=== PATIENT | male | born 1985 | race African-American/Black ===

== ENCOUNTER 2018-06-09 17:31 | Emergency (ER) | payer SELFPAY ==
[2018-06-09] MEDS ORDERED: Ketorolac Tromethamine 60 MG/2 ML VIAL ONE (19:01)
== END 2018-06-09 19:29 | disposition home or self-care (01) ==
LOC: ERS 17:31
DX: M62.830 Muscle spasm of back (principal); M62.838 Other muscle spasm; V89.2XXA Person injured in unspecified motor-vehicle accident, traffic, initial encounter; F17.210 Nicotine dependence, cigarettes, uncomplicated
CPT/HCPCS: 96372; J1885

== ENCOUNTER 2022-10-06 11:01 | Emergency (ER) | payer OTHER, SELFPAY ==
[2022-10-06 11:54] LABS: Bilirubin Negative (Negative); Blood, Urine Negative (Negative); Clarity Clear (Clear); Glucose, Urine (Dipstick) Normal (Negative); Ketone, Urine Negative (Negative); Leukocyte Negative Leu/uL (Negative); Nitrite Negative (Negative); Protein, Urine (Dipstick) Negative (Neg-Trace); Specific Gravity, Urine 1.002 (1.002-1.036); Urobilinogen Normal mg/dL (Less than 2); pH, Urine 5.5 (5.0-9.0)
[2022-10-06 12:01] LABS: Amphetamine Not Detected (NotDetected); Barbiturates Screen Not Detected (NotDetected); Benzodiazepine Screen Not Detected (NotDetected); Cocaine Metabolite Screen Not Detected (NotDetected); Methadone Not Detected (NotDetected); Methamphetamine Not Detected (NotDetected); Opiate Screen Not Detected (NotDetected); Oxycodone Screen Not Detected (NotDetected); Phencyclidine (PCP) Not Detected (NotDetected); THC/Cannabinoid Screen Not Detected (NotDetected); Tricyclic Screen Not Detected (NotDetected)
[2022-10-06 12:06] LABS: #Basophils 0.1 thou/uL (0.0-0.2); #Monocytes 0.9 thou/uL (0.11-0.59); #Neutrophils 7.2 thou/uL (1.40-6.50); %Basophils 0.8 % (0.0-1.0); %Eosinophils 0.3 % (0.0-10.0); %Lymphocytes 19.6 % (21.0-51.0); %Neutrophils 70.3 % (42.0-75.0); Hemoglobin 14.2 g/dL (14.0-18.0); Mean Corpuscular HGB CONC 33.4 g/dL (32.0-36.0); Mean Corpuscular Hemoglobin 34.1 pg (27.0-31.0); Mean Platelet Volume 8.2 fL (7.4-10.4); Platelet Count 133 10x3/uL (130-400); RBC Distribution Width 11.4 % (11.5-14.5); Red Blood Cell (RBC) Count 4.17 mill/uL (4.70-6.10); White Blood Cell (WBC) Count 10.3 10x3/uL (4.8-10.8)
[2022-10-06 12:22] LABS: SARS-CoV-2 NAA Rapid Test Not Detected (NotDetected)
[2022-10-06 12:33] LABS: ALT (SGPT) 157 U/L (8-55); AST (SGOT) 162 U/L (5-34); Albumin 4.6 g/dL (3.5-5.0); Alkaline Phosphatase 98 U/L (40-110); Anion Gap 20 mmol/L (10-20); BUN (Urea Nitrogen) 6 mg/dL (8.9-20.6); Bilirubin, Total 1.2 mg/dL (0.2-1.2); Calc. Creatinine Clearance 0 mL/min (70-130); Calcium 9.2 mg/dL (7.8-10.44); Carbon Dioxide 22 mmol/L (22-29); Chloride 100 mmol/L (98-107); Estimated GFR 119; Globulin 3.3 g/dL (2.4-3.5); Glucose 115 mg/dL (70-105); Magnesium 2.1 mg/dL (1.6-2.6); Potassium 3.6 mmol/L (3.5-5.1); Protein, Total 7.9 g/dL (6.0-8.3); Sodium 138 mmol/L (136-145)
[2022-10-06 12:34] LABS: Acetaminophen Less than 10.0 mcg/mL (10.0-30.0); Alcohol 408 mg/dL (Less than 10); Salicylate Less than 8.0 mg/dL (15.0-30.0)
== END 2022-10-07 07:43 | disposition home or self-care (01) ==
LOC: ERS 11:01
DX: F10.129 Alcohol abuse with intoxication, unspecified (principal); F43.20 Adjustment disorder, unspecified; F17.200 Nicotine dependence, unspecified, uncomplicated; Z20.822 Contact with and (suspected) exposure to COVID-19
CPT/HCPCS: 36415; 80053; 80306; 80307; 81003; 83735; 84443; 85025; 99285; U0002

== ENCOUNTER 2022-10-08 00:21 | Emergency (ER) | payer SELFPAY ==
[2022-10-08] MEDS ORDERED: CEFAZOLIN 1 GM VIAL ONE (01:05)
[2022-10-08] MEDS ORDERED: Boostrix 0.5 ML (Tdap) VIAL (>/=7 yrs of age) ONE (01:05)
[2022-10-08 01:19] LABS: Hemoglobin 13.1 g/dL (14.0-18.0); Mean Corpuscular HGB CONC 33.4 g/dL (32.0-36.0); Mean Corpuscular Hemoglobin 34.1 pg (27.0-31.0); Red Blood Cell (RBC) Count 3.85 mill/uL (4.70-6.10); White Blood Cell (WBC) Count 9.2 10x3/uL (4.8-10.8)
[2022-10-08 01:26] LABS: ALT (SGPT) 167 U/L (8-55); AST (SGOT) 245 U/L (5-34); Acetaminophen Less than 10.0 mcg/mL (10.0-30.0); Albumin 4.2 g/dL (3.5-5.0); Alcohol Less than 10 mg/dL (Less than 10); Alkaline Phosphatase 114 U/L (40-110); Anion Gap 18 mmol/L (10-20); BUN (Urea Nitrogen) 6 mg/dL (8.9-20.6); Bilirubin, Total 3.3 mg/dL (0.2-1.2); Calc. Creatinine Clearance 0 mL/min (70-130); Calcium 9.1 mg/dL (7.8-10.44); Carbon Dioxide 25 mmol/L (22-29); Chloride 91 mmol/L (98-107); Estimated GFR 118; Globulin 3.1 g/dL (2.4-3.5); Glucose 147 mg/dL (70-105); Potassium 3.6 mmol/L (3.5-5.1); Protein, Total 7.3 g/dL (6.0-8.3); Salicylate Less than 8.0 mg/dL (15.0-30.0); Sodium 130 mmol/L (136-145)
[2022-10-08 01:35] LABS: #Basophils 0.1 thou/uL (0.0-0.2); #Eosinphils 0.1 thou/uL (0.0-0.7); #Lymphocytes 1.2 thou/uL (1.20-3.40); #Monocytes 0.7 thou/uL (0.11-0.59); #Neutrophils 7.2 thou/uL (1.40-6.50); %Basophils 0.6 % (0.0-1.0); %Eosinophils 0.6 % (0.0-10.0); %Lymphocytes 13.3 % (21.0-51.0); %Monocytes 7.4 % (0.0-10.0); %Neutrophils 78.1 % (42.0-75.0); Band 8 % (5-11); Hypochromia SLIGHT = 6-15 cells (100X) (0-5/hpf); Lymphocytes 17 % (21-51); MDiff Complete? YES; Macrocytosis SLIGHT = 6-15 cells (100X) (0-5/hpf); Mean Platelet Volume 8.9 fL (7.4-10.4); Monocytes 8 % (0-10); Neutrophil 64 % (42-75); Platelet Count 114 10x3/uL (130-400); Platelet Morphology Comment Appears Decreased; Reactive Lymphocytes 3 % (0-10)
[2022-10-08] MEDS ORDERED: Ketorolac Tromethamine 30 MG/ML VIAL ONE (02:31)
[2022-10-08 03:38] LABS: Amphetamine Not Detected (NotDetected); Barbiturates Screen Not Detected (NotDetected); Benzodiazepine Screen Not Detected (NotDetected); Cocaine Metabolite Screen Not Detected (NotDetected); Methadone Not Detected (NotDetected); Methamphetamine Not Detected (NotDetected); Opiate Screen Not Detected (NotDetected); Oxycodone Screen Not Detected (NotDetected); Phencyclidine (PCP) Not Detected (NotDetected); THC/Cannabinoid Screen Not Detected (NotDetected); Tricyclic Screen Not Detected (NotDetected)
[2022-10-08] MEDS ORDERED: Bacitracin 1 PK ONE (03:40)
[2022-10-08] MEDS ORDERED: Lidocaine 1% w/Epinephrine 1:100K 20 ML VIAL ONE (04:21)
[2022-10-08] MEDS ORDERED: Lidocaine 1% PF 5 ML VIAL ONE (04:25)
[2022-10-08 04:28] LABS: Lactic Acid 0.7 mmol/L (0.5-2.2)
[2022-10-08] MEDS ORDERED: Iopamidol-370 76% 500 ML 1 ML ONE (17:40)
== END 2022-10-08 05:00 | disposition home or self-care (01) ==
LOC: ERS 00:21
DX: S01.81XA Laceration without foreign body of other part of head, initial encounter (principal); S20.219A Contusion of unspecified front wall of thorax, initial encounter; S60.511A Abrasion of right hand, initial encounter; S60.512A Abrasion of left hand, initial encounter; F17.200 Nicotine dependence, unspecified, uncomplicated; Z23 Encounter for immunization; W18.39XA Other fall on same level, initial encounter
CPT/HCPCS: 12002; 36415; 70450; 70486; 71045; 71275; 76705; 80053; 80306; 80307; 83605; 84484; 85025; 85379; 90471; 90715; 93005; 96361; 96365; 96375; J0690; J1885; Q9967

== ENCOUNTER 2022-10-14 17:00 | Emergency (ER) | payer SELFPAY | END 2022-10-14 20:28 | disposition home or self-care (01) | LOC: ERS 17:00 | DX: S01.81XD Laceration without foreign body of other part of head, subsequent encounter (principal); X58.XXXD Exposure to other specified factors, subsequent encounter; F17.200 Nicotine dependence, unspecified, uncomplicated ==

== ENCOUNTER 2023-12-31 07:34 | Emergency (ER) | payer SELFPAY | END 2023-12-31 08:22 | disposition home or self-care (01) | LOC: ERS 07:34 | DX: S93.401A Sprain of unspecified ligament of right ankle, initial encounter (principal); F17.200 Nicotine dependence, unspecified, uncomplicated; W10.8XXA Fall (on) (from) other stairs and steps, initial encounter; Y93.01 Activity, walking, marching and hiking ==

== ENCOUNTER 2024-02-07 09:30 | Emergency (ER) | payer SELFPAY ==
[2024-02-07] MEDS ORDERED: Ibuprofen 200 MG TAB ONE (09:57)
== END 2024-02-07 10:21 | disposition home or self-care (01) ==
LOC: ERS 09:30
DX: S86.012A Strain of left Achilles tendon, initial encounter (principal); F17.200 Nicotine dependence, unspecified, uncomplicated; X58.XXXA Exposure to other specified factors, initial encounter

== ENCOUNTER 2024-04-24 17:29 | Emergency (ER) | payer SELFPAY | END 2024-04-24 20:45 | disposition home or self-care (01) | LOC: ERS 17:29 | DX: M25.572 Pain in left ankle and joints of left foot (principal); F17.200 Nicotine dependence, unspecified, uncomplicated | CPT/HCPCS: 99283 ==

== ENCOUNTER 2024-05-09 22:17 | Emergency (ER) | payer SELFPAY ==
[2024-05-09] MEDS ORDERED: Ketorolac Tromethamine 30 MG (1 mL) VIAL ONE (23:21)
== END 2024-05-09 23:40 | disposition home or self-care (01) ==
LOC: ERS 22:17
DX: M25.572 Pain in left ankle and joints of left foot (principal); F17.210 Nicotine dependence, cigarettes, uncomplicated; X50.1XXA Overexertion from prolonged static or awkward postures, initial encounter
CPT/HCPCS: 96372; 99283; J1885

== ENCOUNTER 2024-07-11 08:56 | Emergency (ER) | payer SELFPAY | END 2024-07-11 10:00 | disposition home or self-care (01) | LOC: ERS 08:56 | DX: S60.221A Contusion of right hand, initial encounter (principal); S20.211A Contusion of right front wall of thorax, initial encounter; F17.290 Nicotine dependence, other tobacco product, uncomplicated; F17.210 Nicotine dependence, cigarettes, uncomplicated; W11.XXXA Fall on and from ladder, initial encounter | CPT/HCPCS: 99283 ==

== ENCOUNTER 2025-07-08 18:13 | Inpatient (IN) | payer SELFPAY ==
[~2025-07-08 18:13] MED LIST: Iopamidol-370 76% 500 ML MDV (1 ML CHARGE) ONE
[2025-07-08 19:10] LABS: ALT (SGPT) 13 U/L (Less than 45); AST (SGOT) 22 U/L (11-34); Albumin 4.4 g/dL (3.1-4.5); Alkaline Phosphatase 76 U/L (40-110); Anion Gap 20 mmol/L (10-20); BUN (Urea Nitrogen) 17 mg/dL (8.9-20.6); Bilirubin, Total 1.4 mg/dL (0.3-1.2); Calc. Creatinine Clearance 0 mL/min (70-130); Calcium 9.6 mg/dL (7.8-10.44); Carbon Dioxide 19 mmol/L (22-29); Chloride 104 mmol/L (98-107); Globulin 3.8 g/dL (2.4-3.5); Glucose 89 mg/dL (70-105); Potassium 3.4 mmol/L (3.5-5.1); Sodium 140 mmol/L (136-145)
[2025-07-08 19:13] LABS: #Basophils 0.03 10x3/uL (0.0-0.2); #Eosinophils Less than 0.03 10x3/uL (0.0-0.7); #Monocytes 1.46 10x3/uL (0.11-0.59); #Neutrophils 10.08 10x3/uL (1.40-6.50); %Basophils 0.2 % (0.0-1.0); %Eosinophils 0.2 % (0.0-10.0); %Lymphocytes 11.6 % (21.0-51.0); %Monocytes 11.1 % (0.0-10.0); %Neutrophils 76.5 % (42.0-75.0); Hematocrit 40.1 % (42.0-52.0); Hemoglobin 13.2 g/dL (14.0-18.0); Mean Corpuscular Hemoglobin 30.8 pg (27.0-31.0); Mean Corpuscular Volume 93.5 fL (78.0-98.0); Platelet Count 211 10x3/uL (130-400); Red Blood Cell (RBC) Count 4.29 mill/uL (4.70-6.10); White Blood Cell (WBC) Count 13.16 10x3/uL (4.8-10.8)
[2025-07-08] MEDS ORDERED: cefTRIAXone (ROCEPHIN) 1 GM VIAL ONE (20:25)
[2025-07-08] MEDS ORDERED: Azithromycin 500 MG VIAL ONE (20:25)
[2025-07-08] MEDS ORDERED: Melatonin 3 MG TAB PO PRN (20:56)
[2025-07-08] MEDS ORDERED: Ondansetron PF 4 MG/2 ML Vial IVP PRN (20:56)
[2025-07-08] MEDS ORDERED: Azithromycin 500 MG in Sodium Chloride 0.9% 250 ML 250 ML IVPB SCH (21:00)
[2025-07-08 22:19] LABS: HIV (1/2) Antibody/Antigen NONREACTIVE (NonReactive); HIV 1/2 INDEX 0.05 S/CO (<1.00)
[2025-07-08 22:38] LABS: Cocaine Metabolite Screen Negative (Negative); THC/Cannabinoid Screen Negative (Negative); Tricyclic Screen Negative (Negative)
[2025-07-08] MEDS: Enoxaparin 40 MG (0.4 mL) SYRINGE SC SCH (22:55)
[2025-07-08 23:06] LABS: Legionella Urinary Ag Negative (Negative); Strep pneumo Urine Ag NEGATIVE (NEGATIVE)
[2025-07-08 23:07] VITALS: BMI 17.4
[2025-07-08 23:47] LABS: Magnesium 1.9 mg/dL (1.6-2.6)
[2025-07-09] MEDS: Magnesium 2 GM/50 ML(in water) 2 GM in Premix 1 BAG IVPB SCH (01:09)
[2025-07-09] MEDS: Acetaminophen 325 MG TAB PO PRN (05:55)
[2025-07-09 07:07] LABS: #Basophils 0.04 10x3/uL (0.0-0.2); #Eosinophils 0.08 10x3/uL (0.0-0.7); #Monocytes 1.41 10x3/uL (0.11-0.59); #Neutrophils 7.79 10x3/uL (1.40-6.50); %Basophils 0.4 % (0.0-1.0); %Eosinophils 0.7 % (0.0-10.0); %Lymphocytes 17.7 % (21.0-51.0); %Monocytes 12.4 % (0.0-10.0); %Neutrophils 68.4 % (42.0-75.0); Hematocrit 35.0 % (42.0-52.0); Hemoglobin 11.4 g/dL (14.0-18.0); Mean Corpuscular Hemoglobin 30.6 pg (27.0-31.0); Mean Corpuscular Volume 93.8 fL (78.0-98.0); Platelet Count 198 10x3/uL (130-400); Red Blood Cell (RBC) Count 3.73 mill/uL (4.70-6.10); White Blood Cell (WBC) Count 11.38 10x3/uL (4.8-10.8)
[2025-07-09 07:27] LABS: Anion Gap 11 mmol/L (10-20); BUN (Urea Nitrogen) 12 mg/dL (8.9-20.6); Calc. Creatinine Clearance 138 mL/min (70-130); Calcium 8.4 mg/dL (7.8-10.44); Carbon Dioxide 23 mmol/L (22-29); Chloride 108 mmol/L (98-107); Glucose 97 mg/dL (70-105); Magnesium 2.3 mg/dL (1.6-2.6); Potassium 4.0 mmol/L (3.5-5.1); Sodium 138 mmol/L (136-145)
[2025-07-09] MEDS: Enoxaparin 40 MG (0.4 mL) SYRINGE SC SCH (08:27)
[2025-07-09] MEDS: cefTRIAXone\\ROCEPHIN 1 GM in Sodium Chloride 0.9% 100 ML IVPB SCH (20:07)
[2025-07-10 11:00] LABS: Hematocrit 39.8 % (42.0-52.0); Hemoglobin 12.9 g/dL (14.0-18.0); Mean Corpuscular Hemoglobin 30.7 pg (27.0-31.0); Mean Corpuscular Volume 94.8 fL (78.0-98.0); Platelet Count 238 10x3/uL (130-400); Red Blood Cell (RBC) Count 4.20 mill/uL (4.70-6.10); White Blood Cell (WBC) Count 6.69 10x3/uL (4.8-10.8)
[2025-07-10 11:13] LABS: Anion Gap 12 mmol/L (10-20); BUN (Urea Nitrogen) 9 mg/dL (8.9-20.6); Calc. Creatinine Clearance 136 mL/min (70-130); Calcium 9.2 mg/dL (7.8-10.44); Carbon Dioxide 27 mmol/L (22-29); Chloride 107 mmol/L (98-107); Glucose 104 mg/dL (70-105); Potassium 3.8 mmol/L (3.5-5.1); Sodium 142 mmol/L (136-145)
[2025-07-10 11:25] LABS: Burr Cells SLIGHT = 2-5 cells HPF (0-1); Platelet Adequacy Comment Platelets Normal; Poikilocytosis SLIGHT = 6-15 cells HPF (0-5); Smudge Cells 1.0 %
[2025-07-10 18:54] VITALS: BP 144/81; TEMP 98.1
[2025-07-11] MEDS ORDERED: FLU (Fluarix Triv) 25-26 (6MOS UP)/PF 45 MCG/0.5 ML Syringe IM ONE (09:00)
== END 2025-07-10 18:14 | disposition home or self-care (01) | DRG 871 ==
LOC: ERS 18:13 → OBSVTOIN 20:50 → OBS 20:50 → UNDODISIN 07-09 15:00
PROVIDERS: ADMIT Internal Medicine; ATTEND Internal Medicine
DX: A41.9 Sepsis, unspecified organism (principal); J18.9 Pneumonia, unspecified organism; J96.01 Acute respiratory failure with hypoxia; Z59.00 Homelessness unspecified; E87.6 Hypokalemia; F17.210 Nicotine dependence, cigarettes, uncomplicated
CPT/HCPCS: 36415; 71045; 71275; 80048; 80053; 80306; 83605; 83735; 83880; 84484; 85025; 87040; 87070; 87077; 87205; 87389; 87428; 87449; 87899; 93005; 96374; J0456; J0696; J1650; J3475; J7120; Q9967